=== PATIENT | male | born 1985 | race Caucasian/White ===

== ENCOUNTER 2018-07-07 01:12 | Inpatient (IN) | payer OTHER ==
[~2018-07-07] VITALS: Ht 190.5 cm; Wt 83.9 kg
[2018-07-07 02:34] LABS: BASOPHIL % 1.2 % (0-2); PLATELET COUNT 302 x10^3mcL (130-400); RED CELL DISTRIBUTION WIDTH 14.4 % (11.5-14.5)
[2018-07-07 02:39] LABS: CALCIUM 9.1 mg/dL (8.5-10.1); CARBON DIOXIDE 24.5 mmol/L (21-32); CHLORIDE SERUM 107 mmol/L (98-107); GFR1 > 60 mL/min; GLUCOSE SERUM 109 mg/dL (74-106); POTASSIUM SERUM 4.8 mmol/L (3.5-5.1); SODIUM SERUM 140 mmol/L (136-145)
[2018-07-07 02:43] LABS: ALBUMIN 3.6 g/dL (3.4-5.0); ALKALINE PHOSPHATASE 107 U/L (46-116); ALT/SGPT 47 U/L (16-63); AST/SGOT 30 U/L (15-37); BILIRUBIN TOTAL 0.27 mg/dL (0.20-1.00); TOTAL PROTEIN, SERUM 7.7 g/dL (6.4-8.2)
[2018-07-07] MEDS ORDERED: [UNRECOGNIZED DRUG - OTHER] PO (04:04)
[2018-07-07] MEDS ORDERED: OMEPRAZOLE20 M4 PO (04:05)
[2018-07-07 05:25] VITALS: BP 111/78
[2018-07-07 06:28] VITALS: Ht 190.5 cm; Wt 83.9 kg
[2018-07-07 08:32] VITALS: BP 126/76
[2018-07-07 16:15] VITALS: BP 106/60
[2018-07-07 21:19] VITALS: BP 115/60
[2018-07-08 06:23] VITALS: BP 128/75
[2018-07-08 06:36] LABS: BASOPHIL % 0.6 % (0-2); PLATELET COUNT 315 x10^3mcL (130-400); RED CELL DISTRIBUTION WIDTH 14.3 % (11.5-14.5)
[2018-07-08 08:03] VITALS: BP 123/68
[2018-07-08 08:52] LABS: ALBUMIN 3.6 g/dL (3.4-5.0); ALKALINE PHOSPHATASE 102 U/L (46-116); ALT/SGPT 40 U/L (16-63); AST/SGOT 27 U/L (15-37); BILIRUBIN TOTAL 0.4 mg/dL (0.20-1.00); CALCIUM 9.2 mg/dL (8.5-10.1); CARBON DIOXIDE 25.1 mmol/L (21-32); CHLORIDE SERUM 104 mmol/L (98-107); CREATININE SERUM 0.8 mg/dL (0.7-1.3); GFR1 > 60 mL/min; GLUCOSE SERUM 97 mg/dL (74-106); MAGNESIUM 1.9 mg/dL (1.8-2.4); PHOSPHOROUS 3.6 mg/dL (2.5-4.9); POTASSIUM SERUM 5.1 mmol/L (3.5-5.1); SODIUM SERUM 138 mmol/L (136-145); TOTAL PROTEIN, SERUM 7.5 g/dL (6.4-8.2)
[2018-07-08 15:47] VITALS: BP 117/69
[2018-07-08 20:24] VITALS: BP 122/72
[2018-07-09 05:54] VITALS: BP 120/64
[2018-07-09 06:10] LABS: BASOPHIL % 0.3 % (0-2); PLATELET COUNT 315 x10^3mcL (130-400); RED CELL DISTRIBUTION WIDTH 14.3 % (11.5-14.5)
[2018-07-09 07:03] LABS: ALBUMIN 3.5 g/dL (3.4-5.0); ALKALINE PHOSPHATASE 98 U/L (46-116); ALT/SGPT 45 U/L (16-63); AST/SGOT 23 U/L (15-37); BILIRUBIN TOTAL 0.34 mg/dL (0.20-1.00); CALCIUM 9.8 mg/dL (8.5-10.1); CARBON DIOXIDE 24.7 mmol/L (21-32); CHLORIDE SERUM 104 mmol/L (98-107); CREATININE SERUM 0.8 mg/dL (0.7-1.3); GFR1 > 60 mL/min; GLUCOSE SERUM 96 mg/dL (74-106); PHOSPHOROUS 4.2 mg/dL (2.5-4.9); POTASSIUM SERUM 4.6 mmol/L (3.5-5.1); SODIUM SERUM 140 mmol/L (136-145); TOTAL PROTEIN, SERUM 7.2 g/dL (6.4-8.2)
[2018-07-09 07:53] VITALS: BP 99/59
[2018-07-09 16:00] VITALS: BP 133/56
[2018-07-09 21:41] VITALS: BP 111/53
[2018-07-10 05:38] VITALS: BP 115/65
[2018-07-10 06:18] LABS: BASOPHIL % 0.4 % (0-2); PLATELET COUNT 297 x10^3mcL (130-400)
[2018-07-10 09:31] VITALS: BP 101/55
[2018-07-10 10:37] LABS: CALCIUM 9.1 mg/dL (8.5-10.1); CARBON DIOXIDE 24.2 mmol/L (21-32); CHLORIDE SERUM 104 mmol/L (98-107); CREATININE SERUM 0.8 mg/dL (0.7-1.3); GFR1 > 60 mL/min; GLUCOSE SERUM 97 mg/dL (74-106); POTASSIUM SERUM 4.2 mmol/L (3.5-5.1); SODIUM SERUM 140 mmol/L (136-145)
[2018-07-10 18:10] VITALS: BP 102/47
[2018-07-10 22:37] VITALS: BP 111/56
[2018-07-11 05:36] VITALS: BP 97/55
[2018-07-11 09:44] VITALS: BP 115/62
[2018-07-11 16:55] VITALS: BP 108/60
[2018-07-11 21:09] VITALS: BP 104/35
[2018-07-12 06:25] VITALS: BP 103/52
[2018-07-12 06:38] LABS: BASOPHIL % 0.8 % (0-2); PLATELET COUNT 314 x10^3mcL (130-400); RED CELL DISTRIBUTION WIDTH 14.4 % (11.5-14.5)
[2018-07-12 06:46] LABS: CALCIUM 10.2 mg/dL (8.5-10.1); CARBON DIOXIDE 24.1 mmol/L (21-32); CHLORIDE SERUM 109 mmol/L (98-107); CREATININE SERUM 0.8 mg/dL (0.7-1.3); GFR1 > 60 mL/min; GLUCOSE SERUM 112 mg/dL (74-106); POTASSIUM SERUM 4.1 mmol/L (3.5-5.1); SODIUM SERUM 144 mmol/L (136-145)
[2018-07-12 09:00] VITALS: BP 107/57
[2018-07-12 17:18] VITALS: BP 112/42
[2018-07-12 20:42] VITALS: BP 117/63
[2018-07-13 06:18] VITALS: BP 116/73
[2018-07-13 07:21] LABS: CALCIUM 9.1 mg/dL (8.5-10.1); CARBON DIOXIDE 24.2 mmol/L (21-32); CHLORIDE SERUM 110 mmol/L (98-107); CREATININE SERUM 0.9 mg/dL (0.7-1.3); GFR1 > 60 mL/min; GLUCOSE SERUM 99 mg/dL (74-106); POTASSIUM SERUM 4.9 mmol/L (3.5-5.1); SODIUM SERUM 145 mmol/L (136-145)
[2018-07-13 09:00] VITALS: BP 108/47
[2018-07-13 09:00] LABS: PLATELET COUNT 341 x10^3mcL (130-400)
[2018-07-13 09:27] LABS: RED CELL DISTRIBUTION WIDTH 13.1 % (11.5-14.5)
[2018-07-13 09:51] VITALS: BP 108/47
[2018-07-13 15:14] LABS: BAND NEUTROPHIL 0 % (0-10); BASOPHIL 0 % (0-2); MONOCYTE 12 % (0-7); SEGMENTED NEUTROPHILS 52 % (37-75)
[2018-07-13 15:15] LABS: rbc morphology (normal/abnorm) NORMAL (NORMAL)
== END 2018-07-13 12:01 | disposition other institution (70) | DRG 728 ==
LOC: ED 01:12 → MU 04:07
PROVIDERS: Emergency Medicine; Internal Medicine; ADMIT Internal Medicine
DX: N45.2 Orchitis (principal); E27.1 Primary adrenocortical insufficiency; E86.0 Dehydration; Z87.891 Personal history of nicotine dependence; M60.9 Myositis, unspecified
CPT/HCPCS: J0696; J1885; J2270; J2405; J2543; J7030; J7040; J7050; Q0092